=== PATIENT | female | born 1965 | race Asian ===

== ENCOUNTER 2024-03-29 06:43 | Day surgery (SDC) | payer OTHER ==
[~2024-03-29] VITALS: Ht 160 cm; Wt 49.9 kg
[2024-03-29] MEDS ORDERED: fentaNYL CITRATE/PF 100 MCG/2 ML AMP ONE (07:18)
[2024-03-29] MEDS ORDERED: MIDAZOLAM HCL 5 MG/5 ML VIAL ONE (07:18)
[2024-03-29 08:23] VITALS: O2SAT 99
[2024-03-29 10:39] VITALS: BP_SYST 112; PULSE 78; RESP 21
== END 2024-03-29 08:38 | disposition home or self-care (01) ==
LOC: SDS 06:43 → SMU 06:48 → SDS 08:38
PROVIDERS: ATTEND Internal Medicine Gastroenterology
DX: Z12.11 Encounter for screening for malignant neoplasm of colon (principal); K64.8 Other hemorrhoids; E78.5 Hyperlipidemia, unspecified; D64.9 Anemia, unspecified; Z87.891 Personal history of nicotine dependence; Z97.3 Presence of spectacles and contact lenses; Z80.0 Family history of malignant neoplasm of digestive organs
CPT/HCPCS: 45378; 99152; G0378; J2250; J3010